=== PATIENT | male | born 1960 | race Asian ===

== ENCOUNTER 2017-06-11 12:56 | Emergency (ER) | payer OTHER ==
[2017-06-11 14:03] LABS: INFLUENZA A PATIENT NEGATIVE (NEGATIVE); INFLUENZA B PATIENT NEGATIVE (NEGATIVE); OBC FLU VALID
== END 2017-06-11 14:21 | disposition home or self-care (01) ==
LOC: ER 12:56
DX: J40 Bronchitis, not specified as acute or chronic (principal); F17.200 Nicotine dependence, unspecified, uncomplicated
CPT/HCPCS: 71046; 87804; 87804-59; 99285-25